=== PATIENT | male | born 1940 | race Caucasian/White ===

== ENCOUNTER → 2020-08-16 14:17 | Outpatient (BNVA) | payer MEDICARE, SELFPAY | PROVIDERS: PCP Internal Medicine; Referring Provider Internal Medicine; Visit Provider Urology | DX: N40.1 Benign prostatic hyperplasia with lower urinary tract symptoms (principal); N13.8 Other obstructive and reflux uropathy; Z79.899 Other long term (current) drug therapy | CPT/HCPCS: 51798; 81002; 99202 ==

== ENCOUNTER → 2021-02-15 08:33 | Outpatient (BNVA) | payer MEDICARE, SELFPAY | PROVIDERS: PCP Internal Medicine | DX: N40.1 Benign prostatic hyperplasia with lower urinary tract symptoms (principal); N13.8 Other obstructive and reflux uropathy | CPT/HCPCS: 51700; 51798; 99212 ==

== ENCOUNTER 2021-03-01 11:00 | Outpatient (REF) | payer MEDICARE, SELFPAY | END 2021-03-01 11:01 | disposition home or self-care (01) | LOC: HO.LNP 11:00 | PROVIDERS: PCP Internal Medicine | DX: N39.0 Urinary tract infection, site not specified (principal); N40.1 Benign prostatic hyperplasia with lower urinary tract symptoms; N13.8 Other obstructive and reflux uropathy | CPT/HCPCS: 51798; 87086; 87088; 87186; 99212 ==

== ENCOUNTER → 2021-06-08 09:55 | Outpatient (BNVA) | payer MEDICARE, SELFPAY | PROVIDERS: PCP Physician Assistant; Visit Provider Urology | DX: N40.1 Benign prostatic hyperplasia with lower urinary tract symptoms (principal); N13.8 Other obstructive and reflux uropathy; N39.0 Urinary tract infection, site not specified | CPT/HCPCS: 51798; 99212 ==

== ENCOUNTER → 2021-12-14 09:19 | Outpatient (BNVA) | payer MEDICARE, SELFPAY | PROVIDERS: PCP Physician Assistant; Visit Provider Urology | DX: N40.1 Benign prostatic hyperplasia with lower urinary tract symptoms (principal); N13.8 Other obstructive and reflux uropathy; R33.8 Other retention of urine | CPT/HCPCS: 51798; 99212 ==

== ENCOUNTER → 2022-02-02 10:45 | Outpatient (BNVA) | payer MEDICARE, SELFPAY | PROVIDERS: PCP Physician Assistant; Visit Provider Urology | DX: N40.1 Benign prostatic hyperplasia with lower urinary tract symptoms (principal); N13.8 Other obstructive and reflux uropathy; R33.8 Other retention of urine; Z79.899 Other long term (current) drug therapy | CPT/HCPCS: Q3014 ==

== ENCOUNTER 2022-02-12 08:16 | Day surgery (SDC) | payer MEDICARE, SELFPAY ==
[2022-02-02 14:13] VITALS: BMI 34.2
--- NOTE | 2022-02-09 12:08 | P.CONAN_ITS ---
Documented by User: Jaky Robertson NP 02/09/22 12:09 HPI - Anesthesia Eval Consult details Narrative: 81yo M for Laser Ablation Prostate w/Green Light PMFSH Active Problems Active Problems: All Active Problems (Updated 02/02/22 @ 14:13 by Luisa Mccullough, RN) BPH with obstruction/lower urinary tract symptoms (Acute) UTI (urinary tract infection) (Acute) Urinary retention with incomplete bladder emptying (Acute) Past Medical History Medical History (Updated 02/02/22 @ 14:13 by Luisa Mccullough, RN) Arthritis Back pain Chronic renal insufficiency COVID-19 vaccine series completed Depression Elevated cholesterol GERD (gastroesophageal reflux disease) Gout HTN (hypertension) Papilledema Sleep apnea Surgical History Surgical History (Updated 02/02/22 @ 14:12 by Luisa Mccullough RN) H/O colonoscopy History of back surgery History of recent dental procedure History of surgery History of total left knee replacement Hx of cataract extraction Hx of nasal septoplasty Hx of tonsillectomy Hx of wisdom tooth extraction S/P TURP Social History Social History Household Members Other:: daughter Are you a primary associate director career services to a significant other at home: No Do you presently have visiting nurse or other home services: No Patient Tobacco Use Status: Former Tobacco user Quit Date: many years ago Tobacco use type: Pipe Meds Allergies Allergy/AdvReac Type Severity Reaction Status Date / Time No Known Allergies Allergy Verified 02/02/22 10:46 Home Medications Medication Instructions Recorded Confirmed Last Taken Type amlodipine 10 mg tablet 10 mg PO DAILY 08/16/20 02/02/22 02/12/22 History citalopram 20 mg tablet 20 mg PO DAILY 08/16/20 02/02/22 02/12/22 History meloxicam 15 mg tablet 15 mg PO DAILY 08/16/20 02/02/22 Unknown History omeprazole 20 mg capsule,delayed 20 mg PO DAILY 08/16/20 02/02/22 02/12/22 History release simvastatin 20 mg tablet 20 mg PO BEDTIME 08/16/20 02/02/22 02/12/22 History tamsulosin 0.4 mg capsule 0.4 mg PO DAILY 08/16/20 02/02/22 02/12/22 History hydrocortisone valerate 0.2 % appl topical BID 02/15/21 Unknown History topical cream sennosides 8.6 mg-docusate sodium 1 - 2 tab PO BEDTIME 02/15/21 02/02/22 Unknown History 50 mg tablet amoxicillin 500 mg capsule 500 mg PO TID 03/01/21 Unknown History cefadroxil 500 mg capsule 500 mg PO BID 03/01/21 Unknown History cephalexin 500 mg capsule 500 mg PO Q12H 03/01/21 Unknown History fluticasone propionate 50 1 spray intranasal DAILY 03/01/21 02/02/22 Unknown History mcg/actuation nasal spray,suspension acetazolamide 250 mg tablet 250 mg PO BID 12/14/21 02/02/22 02/12/22 History labetalol 300 mg tablet 300 mg PO BID 12/14/21 02/02/22 02/12/22 History Exam Exam Date and Time: February 09, 2022 1208 Height,Weight and Vital Signs: Height 5 ft 8 in Weight 102.058 kg Assessment and Plan Assessment Anesthesia Assessment: Chart Reviewed Documented by User: Dionte Olson MD 02/12/22 17:55 HPI - Anesthesia Eval Consult details Narrative: 81yo M for Laser Ablation Prostate w/Green Light chronic back rice with radiation to LE . PMFSH Past Medical History Medical History (Updated 02/02/22 @ 14:13 by Luisa Mccullough RN) Arthritis Back pain Chronic renal insufficiency COVID-19 vaccine series completed Depression Elevated cholesterol GERD (gastroesophageal reflux disease) Gout HTN (hypertension) Papilledema Sleep apnea Family History Family history of problems with anesthesia: No Surgical History Surgical History (Updated 02/02/22 @ 14:12 by Luisa Mccullough RN) H/O colonoscopy History of back surgery History of recent dental procedure History of surgery History of total left knee replacement Hx of cataract extraction Hx of nasal septoplasty Hx of tonsillectomy Hx of wisdom tooth extraction S/P TURP History of Problems with Anesthesia: No Social History Social History Household Members Other:: daughter Are you a primary associate director career services to a significant other at home: No Do you presently have visiting nurse or other home services: No Patient Tobacco Use Status: Former Tobacco user Quit Date: many years ago Tobacco use type: Pipe Meds Allergies Allergy/AdvReac Type Severity Reaction Status Date / Time No Known Allergies Allergy Verified 02/02/22 10:46 Home Medications Medication Instructions Recorded Confirmed Last Taken Type amlodipine 10 mg tablet 10 mg PO DAILY 08/16/20 02/02/22 02/12/22 History citalopram 20 mg tablet 20 mg PO DAILY 08/16/20 02/02/22 02/12/22 History meloxicam 15 mg tablet 15 mg PO DAILY 08/16/20 02/02/22 Unknown History omeprazole 20 mg capsule,delayed 20 mg PO DAILY 08/16/20 02/02/22 02/12/22 History release simvastatin 20 mg tablet 20 mg PO BEDTIME 08/16/20 02/02/22 02/12/22 History tamsulosin 0.4 mg capsule 0.4 mg PO DAILY 08/16/20 02/02/22 02/12/22 History hydrocortisone valerate 0.2 % appl topical BID 02/15/21 Unknown History topical cream sennosides 8.6 mg-docusate sodium 1 - 2 tab PO BEDTIME 02/15/21 02/02/22 Unknown History 50 mg tablet amoxicillin 500 mg capsule 500 mg PO TID 03/01/21 Unknown History cefadroxil 500 mg capsule 500 mg PO BID 03/01/21 Unknown History cephalexin 500 mg capsule 500 mg PO Q12H 03/01/21 Unknown History fluticasone propionate 50 1 spray intranasal DAILY 03/01/21 02/02/22 Unknown History mcg/actuation nasal spray,suspension acetazolamide 250 mg tablet 250 mg PO BID 12/14/21 02/02/22 02/12/22 History labetalol 300 mg tablet 300 mg PO BID 12/14/21 02/02/22 02/12/22 History Exam Airway Mallampati Class: III TM Dist: >3cm Neck ROM: Full Loose/Missing/Broken Teeth: Yes (Missing , crowns , poor dentition ) Heart: S1,S2 Lungs: b/l breath sounds Assessment and Plan Assessment Anesthesia Assessment: Anesthesia Plan Discussed Final Anesthetic Review Family History of Problems with Anesthesia: No History of Problems with Anesthesia: No NPO: Yes ASA Class: III Final Preanesthetic Review: Meds/Allgs Chart Reviewed, Consent Obtained/Reviewed and Anes Risks/Benef Reviewed Patient Risk: Intermediate Procedure Risk: Intermediate Anesthetic Plan Anesthetic Plan: GA Disposition: Standard PACU
[2022-02-12] VITALS (8 sets, daily range): BP systolic 94–137; BP diastolic 44–60; PULSE 55–62; RESP 10–18; TEMP 36.2–36.4; O2SAT 95–98
[2022-02-12] MEDS: Lactated Ringers 1,000 ML 100 ML IVCONT (09:44)
[2022-02-12] MEDS: Acetaminophen 325 MG TABLET 650 MG PO (09:47)
--- NOTE | 2022-02-12 10:40 | MHC.SHP ---
Pre-Procedural Eval Section A Date of Service: 02/12/22 The patient is an INPATIENT: No Changes since office visit: No Cold of Flu in the past 2 weeks, No New Medical Problems, No Changes in Medication and No Patient answered all questions The History & Physical has been completed within 30 days and I have reviewed it.: Yes Section B Chief Complaint: Benign prostatic hyperplasia with lower urinary Details of Present Illness: GreenLight laser prostatectomy Allergies: Allergies Allergy/AdvReac Type Severity Reaction Status Date / Time No Known Allergies Allergy Verified 02/02/22 10:46 Plan Diagnosis/Plan: Unchanged ( GreenLight laser prostatectomy) I have reviewed the history and physical and performed a pertinent physical examination on my patient. No changes have occurred unless specified.
--- NOTE | 2022-02-12 12:14 | W.PM.OPN ---
Operative Note Operative Note Date of Service: 02/12/22 Narrative: PreOperative Diagnosis: Bladder outlet obstruction Post Operative Diagnosis: Bladder outlet obstruction Procedure: GreenLight Laser Enucleation of the prostate Surgeon: Dr Kranthi Gaspar Anesthesia: General Indications for procedure: recurrent BPH and failure of medications History of bladder outlet obstruction. Treated with alpha-brandon and other medications. Still with symptoms. On cystoscopy in office has recurrent regrowth particularly prominent on right side. Recommendation for prostate procedure with laser enucleation of prostate. It has been discussed. Focus was placed on development of retrograde examination which is a normal part of this procedure. Procedure: After informed consent was verified the patient was brought to the operating room and placed in a supine position. Anesthesia was administered per protocol. Patient was placed in modified dorsal lithotomy position and prepped and draped in a sterile fashion. Safety pause time-out was confirmed. Antibiotics have been given. Twenty-four Vietnamese laser cystoscope was inserted per urethra. No abnormalities found the anterior posterior urethra. The bladder was filled on both ureteric orifices were seen in normal position away from our area of interest. clear evidence of median lobe removal from prior procedure. Substantial regrowth of tissue bilateral particularly on the right side Using a GreenLight laser settings of 80 w incisions were made at the 5 and 7 o'clock position to delineate sides from median area. We started with the patient's left lateral lobe. Firstly the 05:00 o'clock groove was further developed. This was moved in the lateral position to undermine the tissue on the lateral side. Focus was then placed on the laser at the 1 o'clock position in developing a secondary groove down to the level of bladder fibers. The intervening tissue between these 2 grooves was removed with a combination of enucleation ablation working from the apex toward the bladder neck. A similar procedure was repeated on the patient's right-hand side. The right side had more substantial regrowth particularly from an anterior lobe. When this was completed debris and pieces of prostate removed from the bladder. Both ureteric orifices were reviewed again in shown to be patent in away from any areas of energy damage. The apical area was reviewed in any stray ooze was controlled. A 22 Vietnamese 30 cc balloon Yu catheter was placed over stylet into the bladder. Clear efflux was obtained. 30 cc was placed in the balloon and gentle traction was placed. A snap was used to hold tension once the patient will be moved and transported. Once transportation its finish this novel be removed. A belladonna and opiate suppository was placed for postprocedure pain management. He tolerated procedure well was extubated in the operating and transferred in a stable condition to the recovery area. Total Power 212 kW, 27 minutes Pathology: Prostate tissue Drains: Yu catheter
[2022-02-12] MEDS: traMADoL HCL 50 MG TABLET PO (13:08)
== END 2022-02-12 14:12 | disposition home or self-care (01) ==
PROVIDERS: PCP Internal Medicine; Visit Provider Urology
PROC: (CPT 52648; principal; 2022-02-12 10:00)
DX: N40.1 Benign prostatic hyperplasia with lower urinary tract symptoms (principal); N13.8 Other obstructive and reflux uropathy; R33.9 Retention of urine, unspecified; N39.0 Urinary tract infection, site not specified; I12.9 Hypertensive chronic kidney disease with stage 1 through stage 4 chronic kidney disease, or unspecified chronic kidney disease; N18.9 Chronic kidney disease, unspecified; H47.10 Unspecified papilledema; M10.9 Gout, unspecified; G47.33 Obstructive sleep apnea (adult) (pediatric); Z79.51 Long term (current) use of inhaled steroids; Z79.899 Other long term (current) drug therapy; Z87.891 Personal history of nicotine dependence
CPT/HCPCS: 52648; 88305; J1956; J2405; J3010

== ENCOUNTER → 2022-02-15 09:15 | Outpatient (BNVA) | payer MEDICARE, SELFPAY | PROVIDERS: PCP Internal Medicine; Visit Provider Urology | DX: N40.1 Benign prostatic hyperplasia with lower urinary tract symptoms (principal); N13.8 Other obstructive and reflux uropathy | CPT/HCPCS: 51700; 51798 ==

== ENCOUNTER 2022-03-30 10:52 | Outpatient (AMB) | payer MEDICARE, SELFPAY ==
--- NOTE | 2022-03-29 13:47 | MHC.OFFVIS ---
Intake Intake Visit Reasons: 6 week post op Intake Note: Patient is present for post op follow up Current medication Tamsulosin Reports no medication changes Post void residual: Accompanied by: Self / Same As Patient Allergies Seasonal Allergies Allergy (Mild, Verified 07/23/23 10:13) Unknown HPI HPI Comments History of Present Illness Details Christiano is very pleasant male. He is a patient of Dr. Briscoe. He is seen for the following urologic issues. - lower urinary tract symptoms Postop PVR low May stop medication Three-month follow-up PSA Lower urinary tract symptoms Prior history of prostate procedures starting in 2005 Episode of urinary retention and infection in February 2021 Current medication tamsulosin 0.8 mg PFSH Medical History COVID-19 vaccine series completed Papilledema Chronic renal insufficiency Sleep apnea Gout Arthritis Back pain Depression GERD (gastroesophageal reflux disease) Elevated cholesterol HTN (hypertension) BPH with obstruction/lower urinary tract symptoms Surgical History History of recent dental procedure Hx of wisdom tooth extraction Hx of tonsillectomy Hx of nasal septoplasty H/O colonoscopy Hx of cataract extraction History of surgery History of total left knee replacement History of back surgery S/P TURP Social History Household Members Other:: daughter Are you a primary palliative care coordinator to a significant other at home: No Do you presently have visiting nurse or other home services: No Patient Tobacco Use Status: Former Tobacco user Quit Date: many years ago Tobacco use type: Pipe Review of Systems Const Denies chills and Denies fever(s) Card Reports no additional complaints and Denies syncope Resp Denies cough GI Denies abdominal pain and Denies heartburn Reports as per HPI and Denies change in libido Neuro Denies syncope Psych Denies change in libido Endo Denies change in libido Physical Exam Const General: cooperative, healthy appearing, comfortable and no acute distress Orientation/consciousness: patient oriented x3 HEENT Face and sinus: Yes normal facial exam Mouth: moist mucous membranes Neck Neck: Yes normal visual inspection, Yes full ROM and Yes trachea midline Chest Chest palpation & inspection: normal inspection of the chest Resp Effort & Inspection: normal respiratory effort, able to speak in complete sentences and no respiratory distress GI Inspection: Yes normal to inspection Back/Spine/Pelvis Cervical Spine: normal cervical lordosis Thoracic/Lumbar Spine: thoracic and lumbar spine normal to inspection Skin General skin exam: no rashes or lesions noted Neuro General: patient oriented x3, gait normal, tone normal and moves all extremities Extrem General: Yes normal to inspection and Yes capillary refill normal Office Procedures Post Void Residual Post Residual Void Post Void Residual (PVR): 0 [id number] Void Residual by ultrasound Results AMB Urinalysis, Automated UA Leukoctes 125 Livier/uL Last Edit by Dominic Nguyen on 03/30/22 11:16 UA Nitrite Negative Last Edit by Dominic Nguyen on 03/30/22 11:16 UA Urobilinogen 0.2 mg/dL Last Edit by Dominic Nguyen on 03/30/22 11:16 UA Protein 300 mg/dL Last Edit by Dominic gNuyen on 03/30/22 11:16 UA pH 6.0 Last Edit by Dominic Nguyen on 03/30/22 11:16 UA Blood 200 Victor[place]/uL Last Edit by Dominic Nguyen on 03/30/22 11:16 UA Specific [place] 1.030 Last Edit by Dominic Nguyen on 03/30/22 11:16 UA Ketone Negative Last Edit by Dominic Nguyen on 03/30/22 11:16 UA Bilirubin 1 mg/dL Last Edit by Dominic Nguyen on 03/30/22 11:16 UA Glucose 0 mg/dL Last Edit by Dominic Nguyen on 03/30/22 11:16 Results Reviewed Results Reviewed: Laboratory Last Values Urine pH (Auto) 6.0 03/30/22 10:59 Specific [place] (Auto) 1.030 03/30/22 10:59 Urine Protein (Auto) 300 mg/dL 03/30/22 10:59 Glucose (UA)(Auto) 0 mg/dL 03/30/22 10:59 Urine Ketones (Auto) Negative 03/30/22 10:59 Urine Blood (Auto) 200 Victoriano/uL 03/30/22 10:59 Urine Nitrite (Auto) Negative 03/30/22 10:59 Urine Bilirubin (Auto) 1 mg/dL 03/30/22 10:59 Urine Urobilinogen (Auto) 0.2 mg/dL 08/12/22 10:59 Leukocyte Esterase (Auto) 125 Livier/uL 03/30/22 10:59 Assessment & Plan Assessment & Plan (1) BPH with obstruction/lower urinary tract symptoms: Code(s): N40.1 - Benign prostatic hyperplasia with lower urinary tract symptoms; N13.8 - Other obstructive and reflux uropathy (2) Urinary retention with incomplete bladder emptying: Code(s): R33.9 - Retention of urine, unspecified Plan 3m PVR Orders: Orders AMB Urinalysis Automated 03/30/22 Z13.9 - Encounter for screening, unspecified AMB Post Void Residual by ultrasound 03/30/22 R33.9 - Retention of urine, unspecified Medications: New finasteride 5 mg PO DAILY 90 tabs 1RF 90 days N40.1 - Benign prostatic hyperplasia with lower urinary tract symptoms, N13.8 - Other obstructive and reflux uropathy, R33.9 - Retention of urine, unspecified Patient Instructions: Imaging studies, laboratory and physical exam results were discussed and reviewed in detail. No major barriers to patient understanding were identified. An opportunity to ask questions regarding the treatment plan was provided. All questions were answered. The patient expressed understanding and agreement with the above treatment plan. The patient is aware they should contact our office by phone for worsening of their current condition or the appearance of new urologic symptoms. Compliance is encouraged with any medications and followup testing that is ordered. It is a privilege to participate in the urologic care of your patient. If you have any questions or concerns regarding treatment for the above conditions, or other urologic issues, please do not hesitate to contact me. The office telephone contact is [phone]. This note is constructed using voice recognition software. While every effort has been made to ensure accuracy technical support assistant errors may have been included. Yours sincerely, Dr Kranthi Gaspar MD, [facility] - Urology Providers of Expert, Compassionate Care for the Genitourinary System Coding Level of Care Code Est Pt Level 3 (55212) Diagnoses BPH with obstruction/lower urinary tract symptoms N40.1; N13.8 Urinary retention with incomplete bladder emptying R33.9 CPT Codes Post Residual Void - PVR CPT Code: 29257-Jbec Void Residual by ultrasound ([id number])
== END 2022-03-30 11:37 | disposition home or self-care (01) ==
LOC: HO.HUSH 10:52
PROVIDERS: PCP Internal Medicine; Visit Provider Urology
DX: N40.1 Benign prostatic hyperplasia with lower urinary tract symptoms (principal); N13.8 Other obstructive and reflux uropathy; R33.9 Retention of urine, unspecified
CPT/HCPCS: 99024

== ENCOUNTER → 2022-03-30 10:52 | Outpatient (BNVA) | payer MEDICARE, SELFPAY | PROVIDERS: PCP Internal Medicine; Visit Provider Urology | DX: Z13.89 Encounter for screening for other disorder (principal) | CPT/HCPCS: 51798 ==

== ENCOUNTER → 2022-07-10 09:13 | Outpatient (BNVA) | payer MEDICARE, SELFPAY | PROVIDERS: PCP Internal Medicine; Visit Provider Urology | DX: R33.9 Retention of urine, unspecified (principal) | CPT/HCPCS: 51798; 99212 ==

== ENCOUNTER → 2023-01-17 10:52 | Outpatient (BNVA) | payer MEDICARE, SELFPAY | PROVIDERS: PCP Internal Medicine; Visit Provider Urology | DX: N40.1 Benign prostatic hyperplasia with lower urinary tract symptoms (principal); N13.8 Other obstructive and reflux uropathy; R33.9 Retention of urine, unspecified | CPT/HCPCS: 99212 ==

== ENCOUNTER 2023-05-31 15:34 | Outpatient (REF) | payer MEDICARE, SELFPAY ==
[2023-05-31 16:38] LABS: Appearance Urine Clear; Color Urine Dark Yellow; Glucose Urine UA Negative (Negative); Leukocyte Esterase Urine Moderate (2+) (Negative); Nitrite Urine Negative (Negative); PH 6.5 (5.0-9.0); UMIC TRIGGER UA YES; Urine Blood Negative (Negative); Urine Ketones Negative (Negative); Urine Protein 30 (1+) mg/dL (Neg-Trace)
[2023-05-31 16:43] LABS: Bacteria Urine None Seen (None Seen); Hyaline Casts Urine 0-2 /LPF (0-2); RBC Urine 0-2 /HPF (0-2); Squamous Epithelial Cell Urine 0-2 /HPF (0-2); WBC Urine >50 /HPF (0-5)
== END 2023-05-31 15:35 | disposition home or self-care (01) ==
LOC: HO.LAB 15:34
PROVIDERS: Visit Provider Urology
DX: Z12.5 Encounter for screening for malignant neoplasm of prostate (principal); N40.1 Benign prostatic hyperplasia with lower urinary tract symptoms; N13.8 Other obstructive and reflux uropathy
CPT/HCPCS: 81001; 87086

== ENCOUNTER 2023-07-23 09:44 | Outpatient (AMB) | payer MEDICARE, SELFPAY ==
--- NOTE | 2023-07-23 10:12 | MHC.OFFVIS ---
Intake Intake Visit Reasons: 6m/PVR Intake Note: Patient is Present for Follow Up Urology Medication:Tamsulosin Antibiotic Allergies:None Blood Thinners: None PVR: 0 Compliants: no complaints Allergies Seasonal Allergies Allergy (Mild, Verified 07/23/23 10:13) Unknown HPI HPI Comments History of Present Illness Details Christiano is very pleasant male. He is a patient of Dr. Briscoe. He is seen for the following urologic issues. - lower urinary tract symptoms PVR 0 Bladder emptying stable Remains on tamsulosin 0.4 mg UA continues to show trace leukocytes, trace protein Twelve month follow-up PSA Talk about his granddaughter at [employer] Lower urinary tract symptoms Prior history of prostate procedures starting in 2005 Episode of urinary retention and infection in February 2021 Repeat GreenLight laser January 2022 Continues with tamsulosin 0.4 PFSH Medical History COVID-19 vaccine series completed Papilledema Chronic renal insufficiency Sleep apnea Gout Arthritis Back pain Depression GERD (gastroesophageal reflux disease) Elevated cholesterol HTN (hypertension) BPH with obstruction/lower urinary tract symptoms Surgical History History of recent dental procedure Hx of wisdom tooth extraction Hx of tonsillectomy Hx of nasal septoplasty H/O colonoscopy Hx of cataract extraction History of surgery History of total left knee replacement History of back surgery S/P TURP Social History Household Members Other:: daughter Are you a primary respiratory care faculty to a significant other at home: No Do you presently have visiting nurse or other home services: No Patient Tobacco Use Status: Former Tobacco user Quit Date: many years ago Tobacco use type: Pipe Review of Systems Const Denies chills and Denies fever(s) Card Reports no additional complaints and Denies syncope Resp Denies cough GI Denies abdominal pain and Denies heartburn Reports as per HPI and Denies change in libido Neuro Denies syncope Psych Denies change in libido Endo Denies change in libido Physical Exam Const General: cooperative, healthy appearing, comfortable and no acute distress Orientation/consciousness: patient oriented x3 HEENT Face and sinus: Yes normal facial exam Mouth: moist mucous membranes Neck Neck: Yes normal visual inspection, Yes full ROM and Yes trachea midline Chest Chest palpation & inspection: normal inspection of the chest Resp Effort & Inspection: normal respiratory effort, able to speak in complete sentences and no respiratory distress GI Inspection: Yes normal to inspection Back/Spine/Pelvis Cervical Spine: normal cervical lordosis Thoracic/Lumbar Spine: thoracic and lumbar spine normal to inspection Skin General skin exam: no rashes or lesions noted Neuro General: patient oriented x3, gait normal, tone normal and moves all extremities Extrem General: Yes normal to inspection and Yes capillary refill normal Office Procedures Post Void Residual Post Residual Void Post Void Residual (PVR): 0 [id number] Void Residual by ultrasound Results AMB Urinalysis, Automated UA Leukoctes 15 Livier/uL Last Edit by Marlys Thorpe [facility] on 07/23/23 10:20 UA Nitrite Negative Last Edit by Marlys Thorpe [facility] on 07/23/23 10:20 UA Urobilinogen 1 mg/dL Last Edit by Marlys Thorpe A on 07/23/23 10:20 UA Protein 15 mg/dL Last Edit by Marlys Thorpe [facility] on 07/23/23 10:20 UA pH 6.0 Last Edit by Marlys Thorpe [facility] on 07/23/23 10:20 UA Blood 0 Victoriano/uL Last Edit by Marlys Thorpe [facility] on 07/23/23 10:20 UA Specific [place] 1.015 Last Edit by Marlys Thorpe [facility] on 07/23/23 10:20 UA Ketone Negative Last Edit by Marlys Thorpe [facility] on 07/23/23 10:20 UA Bilirubin 0 mg/dL Last Edit by Marlys Thorpe [facility] on 07/23/23 10:20 UA Glucose 0 mg/dL Last Edit by Marlys Thorpe [facility] on 07/23/23 10:20 Results Reviewed Results Reviewed: Laboratory Last Values Urine pH (Auto) 6.0 07/23/23 10:14 Specific [place] (Auto) 1.015 07/23/23 10:14 Urine Protein (Auto) 15 mg/dL 07/23/23 10:14 Glucose (UA)(Auto) 0 mg/dL 07/23/23 10:14 Urine Ketones (Auto) Negative 07/23/23 10:14 Urine Blood (Auto) 0 Victoriano/uL 07/23/23 10:14 Urine Nitrite (Auto) Negative 07/23/23 10:14 Urine Bilirubin (Auto) 0 mg/dL 07/23/23 10:14 Urine Urobilinogen (Auto) 1 mg/dL 07/23/23 10:14 Leukocyte Esterase (Auto) 15 Livier/uL 07/23/23 10:14 Assessment & Plan Assessment & Plan (1) BPH with obstruction/lower urinary tract symptoms: Code(s): N40.1 - Benign prostatic hyperplasia with lower urinary tract symptoms; N13.8 - Other obstructive and reflux uropathy (2) Urinary retention with incomplete bladder emptying: Code(s): R33.9 - Retention of urine, unspecified Plan 12 month follow-up PSA PVR Orders: Orders AMB Urinalysis Automated Today Z13.9 - Encounter for screening, unspecified AMB Post Void Residual by ultrasound Today R33.9 - Retention of urine, unspecified Patient Instructions: Imaging studies, laboratory and physical exam results were discussed and reviewed in detail. No major barriers to patient understanding were identified. An opportunity to ask questions regarding the treatment plan was provided. All questions were answered. The patient expressed understanding and agreement with the above treatment plan. The patient is aware they should contact our office by phone for worsening of their current condition or the appearance of new urologic symptoms. Compliance is encouraged with any medications and followup testing that is ordered. It is a privilege to participate in the urologic care of your patient. If you have any questions or concerns regarding treatment for the above conditions, or other urologic issues, please do not hesitate to contact me. The office telephone contact is [phone]. This note is constructed using voice recognition software. While every effort has been made to ensure accuracy orthopedic physical therapist errors may have been included. Yours sincerely, Dr Kranthi Gaspar MD, [facility] - Urology Providers of Expert, Compassionate Care for the Genitourinary System Coding Level of Care Code Est Pt Level 3 (33373) Diagnoses BPH with obstruction/lower urinary tract symptoms N40.1; N13.8 Urinary retention with incomplete bladder emptying R33.9 CPT Codes Post Residual Void - PVR CPT Code: 42936-[id number] Void Residual by ultrasound ([id number])
== END 2023-07-23 11:00 | disposition home or self-care (01) ==
PROVIDERS: PCP Internal Medicine; Visit Provider Urology
DX: N40.1 Benign prostatic hyperplasia with lower urinary tract symptoms (principal); N13.8 Other obstructive and reflux uropathy; R33.9 Retention of urine, unspecified; Z13.9 Encounter for screening, unspecified
CPT/HCPCS: 99213

== ENCOUNTER → 2023-07-23 09:44 | Outpatient (BNVA) | payer MEDICARE, SELFPAY | PROVIDERS: PCP Internal Medicine; Visit Provider Urology | DX: N40.1 Benign prostatic hyperplasia with lower urinary tract symptoms (principal); N13.8 Other obstructive and reflux uropathy; R33.9 Retention of urine, unspecified | CPT/HCPCS: 51798; 81003; 99212 ==

== ENCOUNTER 2024-07-24 10:29 | Outpatient (AMB) | payer MEDICARE, SELFPAY ==
--- NOTE | 2024-07-24 10:46 | A.OFFVIS_ITS ---
Intake Visit Reasons: 1y/PSA Intake Note: Patient is Present for 1y Follow Up PSA Urology Medication:Tamsulosin Antibiotic Allergies:None Blood Thinners:none Selling Specialist Required: No Allergies Seasonal Allergies Allergy (Mild, Verified 07/24/24 10:48) Unknown HPI Comments Details: Christiano is very pleasant male. He is a patient of Dr. Briscoe. He is seen for the following urologic issues. - lower urinary tract symptoms PVR 0 Bladder emptying stable Remains on tamsulosin 0.4 mg UA continues to show trace leukocytes, trace protein Twelve month follow-up PSA Talk about his granddaughter at [place] who is in [facility] in [place] Lower urinary tract symptoms Prior history of prostate procedures starting in 2005 Episode of urinary retention and infection in February 2021 Repeat GreenLight laser January 2022 Continues with tamsulosin 0.4 PFSH Medical History COVID-19 vaccine series completed Papilledema Chronic renal insufficiency Sleep apnea Gout Arthritis Back pain Depression GERD (gastroesophageal reflux disease) Elevated cholesterol HTN (hypertension) BPH with obstruction/lower urinary tract symptoms Surgical History History of recent dental procedure Hx of wisdom tooth extraction Hx of tonsillectomy Hx of nasal septoplasty H/O colonoscopy Hx of cataract extraction History of surgery History of total left knee replacement History of back surgery S/P TURP Social History Household Members Other:: daughter Are you a primary healthcare receptionist to a significant other at home: No Do you presently have visiting nurse or other home services: No Patient Tobacco Use Status: Former Tobacco user Tobacco use type: Pipe Review of Systems Const Denies chills and Denies fever(s) Card Reports no additional complaints and Denies syncope Resp Denies cough GI Denies abdominal pain and Denies heartburn Reports as per HPI and Denies change in libido Neuro Denies syncope Psych Denies change in libido Endo Denies change in libido Physical Exam Const General: cooperative, healthy appearing, comfortable and no acute distress Orientation/consciousness: patient oriented x3 HEENT Face and sinus: Yes normal facial exam Mouth: moist mucous membranes Neck Neck: Yes normal visual inspection, Yes full ROM and Yes trachea midline Chest Chest palpation & inspection: normal inspection of the chest Resp Effort & Inspection: normal respiratory effort, able to speak in complete sentences and no respiratory distress GI Inspection: Yes normal to inspection Back/Spine/Pelvis Cervical Spine: normal cervical lordosis Thoracic/Lumbar Spine: thoracic and lumbar spine normal to inspection Skin General skin exam: no rashes or lesions noted Neuro General: patient oriented x3, gait normal, tone normal and moves all extremities Extrem General: Yes normal to inspection and Yes capillary refill normal Results AMB Urinalysis, Automated UA Leukoctes 70 Livier/uL Last Edit by RAJESH Beebe on 07/24/24 10:56 UA Nitrite Positive Last Edit by RAJESH Beebe on 07/24/24 10:56 UA Urobilinogen 0.2 mg/dL Last Edit by Jw Mckenzie CCM on 07/24/24 10:5 6 UA Protein 30 mg/dL Last Edit by Jw Mckenzie CCM on 07/24/24 10:56 UA pH 6.0 Last Edit by Jw Mckenzie CCM on 07/24/24 10:56 UA Blood 25 Victoriano/uL Last Edit by Jw Mckenzie CCM on 07/24/24 10:56 UA Specific [place] 1.025 Last Edit by RAJESH Beebe on 07/24/24 10: 56 UA Ketone Negative Last Edit by RAJESH Beebe on 07/24/24 10:56 UA Bilirubin 0 mg/dL Last Edit by Jw Mckenzie CCM on 07/24/24 10:56 UA Glucose 0 mg/dL Last Edit by Jw Mckenzie CCM on 07/24/24 10:56 Results Reviewed Results Reviewed: Laboratory Last Values Urine pH (Auto) 6.0 07/24/24 10:55 Specific [place] (Auto) 1.025 07/24/24 10:55 Urine Protein (Auto) 30 mg/dL 07/24/24 10:55 Glucose (UA)(Auto) 0 mg/dL 07/24/24 10:55 Urine Ketones (Auto) Negative 07/24/24 10:55 Urine Blood (Auto) 25 Victoriano/uL 07/24/24 10:55 Urine Nitrite (Auto) Positive 07/24/24 10:55 Urine Bilirubin (Auto) 0 mg/dL 07/24/24 10:55 Urine Urobilinogen (Auto) 0.2 mg/dL 07/24/24 10:55 Leukocyte Esterase (Auto) 70 Livier/uL 07/24/24 10:55 Assessment & Plan Assessment & Plan (1) BPH with obstruction/lower urinary tract symptoms: Code(s): N40.1 - Benign prostatic hyperplasia with lower urinary tract symptoms; N13.8 - Other obstructive and reflux uropathy Category: Medical Plan Continue medication Orders: Orders AMB Urinalysis Automated Today Z13.9 - Encounter for screening, unspecified Patient Instructions: Imaging studies, laboratory and physical exam results were discussed and reviewe d in detail. No major barriers to patient understanding were identified. An opportunity to ask questions regarding the treatment plan was provided. All questions were answered. The patient expressed understanding and agreement with the above treatment plan. The patient is aware they should contact our office by phone for worsening of their current condition or the appearance of new urologic symptoms. Compliance is encouraged with any medications and followup testing that is ordered. It is a privilege to participate in the urologic care of your patient. If you have any questions or concerns regarding treatment for the above conditions, or other urologic issues, please do not hesitate to contact me. The office telephone contact is [phone]. This note is constructed using voice recognition software. While every effort has been made to ensure accuracy waiter/waitress club errors may have been included. Yours sincerely, Dr Kranthi Gaspar MD, CECE [facility] Providers of Expert, Compassionate Care for the Genitourinary System Coding Level of Care Code Est Pt Level 4 (95190) Diagnoses BPH with obstruction/lower urinary tract symptoms N40.1; N13.8
== END 2024-07-24 11:36 | disposition home or self-care (01) ==
PROVIDERS: PCP Internal Medicine; Visit Provider Urology
DX: N40.1 Benign prostatic hyperplasia with lower urinary tract symptoms (principal); N13.8 Other obstructive and reflux uropathy; Z13.9 Encounter for screening, unspecified
CPT/HCPCS: 99214

== ENCOUNTER → 2024-07-24 10:29 | Outpatient (BNVA) | payer MEDICARE, SELFPAY | PROVIDERS: PCP Internal Medicine; Visit Provider Urology | DX: N40.1 Benign prostatic hyperplasia with lower urinary tract symptoms (principal); N13.8 Other obstructive and reflux uropathy | CPT/HCPCS: 81003; 99212 ==